=== PATIENT | female | born 1980 | race Caucasian/White ===

== ENCOUNTER 2018-02-04 14:33 | Emergency (ER) | payer MEDICAID, SELFPAY ==
[2018-02-04 15:06] LABS: Pregnancy Test - Urine (BHCG) Negative (Negative); Specific Gravity 1.025 (1.002-1.036)
[2018-02-04 15:07] LABS: Pregu Control Background? CLEAR/WHITE (CLR/WHITE); Pregu Control Bar Appear? YES (CONTROL BAR)
[2018-02-04 15:10] LABS: Bilirubin Negative (Negative); Blood, Urine Negative (Negative); Clarity Clear (Clear); Glucose, Urine (Dipstick) Negative (Negative); Leukocyte Negative (Negative); Nitrite Negative (Negative); Protein, Urine (Dipstick) Negative (Neg-Trace); Specific Gravity, Urine 1.025 (1.005-1.030); Urobilinogen 0.2 mg/dL (0.2-1.0); pH, Urine 5.5 (5.0-9.0)
[2018-02-04 15:13] LABS: Amphetamine Detected (NotDetected); Barbiturates Screen Not Detected (NotDetected); Benzodiazepine Screen Not Detected (NotDetected); Cocaine Metabolite Screen Not Detected (NotDetected); Medtox Control Line Valid? VALID (VALID); Methadone Not Detected (NotDetected); Methamphetamine Detected (NotDetected); Opiate Screen Not Detected (NotDetected); Oxycodone Screen Not Detected (NotDetected); Phencyclidine (PCP) Not Detected (NotDetected); THC/Cannabinoid Screen Not Detected (NotDetected); Tricyclic Screen Not Detected (NotDetected)
[2018-02-04] MEDS ORDERED: Bacitracin Zinc 1 Packet ONE (15:28)
[2018-02-04 15:29] LABS: ALT (SGPT) 9 U/L (8-55); AST (SGOT) 15 U/L (5-34); Acetaminophen Less than 6.0 mcg/mL (10.0-30.0); Albumin 3.7 g/dL (3.5-5.0); Alcohol Less than 10 mg/dL (Less than 10); Alkaline Phosphatase 145 U/L (40-150); Anion Gap 11 mmol/L (10-20); BUN (Urea Nitrogen) 10 mg/dL (7.0-18.7); Bilirubin, Total 0.2 mg/dL (0.2-1.2); CK (CPK) 79 U/L (29-168); Calc. Creatinine Clearance 0 mL/min (70-130); Carbon Dioxide 25 mmol/L (22-29); Chloride 107 mmol/L (98-107); Estimated GFR-MDRD 86; Globulin 3.7 g/dL (2.4-3.5); Glucose 104 mg/dL (70-105); Potassium 4.6 mmol/L (3.5-5.1); Protein, Total 7.4 g/dL (6.0-8.3); Salicylate Less than 8.0 mg/dL (15.0-30.0); Sodium 138 mmol/L (136-145)
[2018-02-04 15:35] LABS: #Basophils 0.1 thou/uL (0.0-0.2); #Eosinphils 0.6 thou/uL (0.0-0.7); #Lymphocytes 1.6 thou/uL (1.20-3.40); #Monocytes 0.7 thou/uL (0.11-0.59); #Neutrophils 4.4 thou/uL (1.40-6.50); %Basophils 0.9 % (0.0-1.0); %Eosinophils 7.7 % (0.0-10.0); %Lymphocytes 21.7 % (21.0-51.0); %Monocytes 9.1 % (0.0-10.0); %Neutrophils 60.6 % (42.0-75.0); Hemoglobin 8.5 g/dL (12.0-16.0); Hypochromia SLIGHT = 6-15 cells (100X) (0-5/hpf); MDiff Complete? YES; Mean Corpuscular HGB CONC 29.3 g/dL (32.0-36.0); Mean Corpuscular Hemoglobin 19.8 pg (27.0-31.0); Mean Corpuscular Volume 67.7 fL (78.0-98.0); Mean Platelet Volume 6.5 fL (7.4-10.4); Microcytosis SLIGHT = 6-15 cells (100X) (0-5/hpf); Platelet Count 456 thou/uL (130-400); Polychromasia SLIGHT = 2-3 cells (100X) (0-2/hpf); RBC Distribution Width 15.7 % (11.5-14.5); Red Blood Cell (RBC) Count 4.31 mill/uL (4.20-5.40); White Blood Cell (WBC) Count 7.2 thou/uL (4.8-10.8)
== END 2018-02-04 16:02 | disposition left against medical advice (07) ==
LOC: MADERS 14:33
DX: F32.9 Major depressive disorder, single episode, unspecified (principal); D50.9 Iron deficiency anemia, unspecified; F15.10 Other stimulant abuse, uncomplicated; F90.9 Attention-deficit hyperactivity disorder, unspecified type
CPT/HCPCS: 80053; 80306; 80307; 81003; 81025; 82550; 84443; 85025; 99284

== ENCOUNTER 2019-08-18 12:27 | Emergency (ER) | payer SELFPAY | END 2019-08-18 13:36 | disposition home or self-care (01) | LOC: MADERS 12:27 | DX: S30.0XXA Contusion of lower back and pelvis, initial encounter (principal); F31.9 Bipolar disorder, unspecified; F90.9 Attention-deficit hyperactivity disorder, unspecified type; W18.30XA Fall on same level, unspecified, initial encounter | CPT/HCPCS: 99283 ==

== ENCOUNTER 2021-05-18 21:27 | Emergency (ER) | payer SELFPAY | END 2021-05-18 21:37 | disposition left against medical advice (07) | LOC: MADERS 21:27 | DX: Z53.21 Procedure and treatment not carried out due to patient leaving prior to being seen by health care provider (principal) ==

== ENCOUNTER 2021-05-25 22:48 | Emergency (ER) | payer SELFPAY ==
[2021-05-25] MEDS ORDERED: Ketorolac Tromethamine 30 MG/ML VIAL ONE (23:12)
== END 2021-05-25 23:30 | disposition home or self-care (01) ==
LOC: MADERS 22:48
DX: S20.212A Contusion of left front wall of thorax, initial encounter (principal); W07.XXXA Fall from chair, initial encounter
CPT/HCPCS: 71046; 96372; J1885

== ENCOUNTER 2021-05-27 08:14 | Emergency (ER) | payer OTHER, SELFPAY | END 2021-05-27 08:55 | disposition home or self-care (01) | LOC: MADERS 08:14 | DX: S20.212A Contusion of left front wall of thorax, initial encounter (principal); W01.10XA Fall on same level from slipping, tripping and stumbling with subsequent striking against unspecified object, initial encounter ==

== ENCOUNTER 2021-10-22 18:06 | Emergency (ER) | payer SELFPAY ==
[2021-10-22 18:33] LABS: Bilirubin Negative (Negative); Blood, Urine Large (Negative); Glucose, Urine (Dipstick) Negative (Negative); Ketone, Urine Negative (Negative); Leukocyte Negative (Negative); Nitrite Negative (Negative); Protein, Urine (Dipstick) 100 mg/dL (Neg-Trace); Urobilinogen 0.2 mg/dL (Less than 2)
[2021-10-22 18:35] LABS: Clarity Hazy (Clear); Pregnancy Test - Urine (BHCG) Negative (Negative); Pregu Control Background? CLEAR/WHITE (CLR/WHITE); Pregu Control Bar Appear? YES (CONTROL BAR)
[2021-10-22 18:54] LABS: Bacteria/HPF 1+ HPF (None Seen); RBC/HPF Greater than 50 HPF (0-3); WBC/HPF 0-3 HPF (0-3)
[2021-10-22 18:55] LABS: Amphetamine Detected (NotDetected); Barbiturates Screen Not Detected (NotDetected); Benzodiazepine Screen Not Detected (NotDetected); Cocaine Metabolite Screen Not Detected (NotDetected); Medtox Control Line Valid? VALID (VALID); Methadone Not Detected (NotDetected); Methamphetamine Detected (NotDetected); Opiate Screen Not Detected (NotDetected); Oxycodone Screen Not Detected (NotDetected); Phencyclidine (PCP) Not Detected (NotDetected); THC/Cannabinoid Screen Not Detected (NotDetected); Tricyclic Screen Not Detected (NotDetected)
[2021-10-22 19:07] LABS: #Basophils 0.1 thou/uL (0.0-0.2); #Eosinphils 0.1 thou/uL (0.0-0.7); #Lymphocytes 1.4 thou/uL (1.20-3.40); #Monocytes 0.7 thou/uL (0.11-0.59); %Basophils 1.4 % (0.0-1.0); %Eosinophils 2.1 % (0.0-10.0); %Monocytes 13.2 % (0.0-10.0); %Neutrophils 56.3 % (42.0-75.0); Anisocytosis SLIGHT = 6-15 cells (100X) (0-5/hpf); Hemoglobin 9.6 g/dL (12.0-16.0); Hypochromia MODERATE=16-30 cells (100X) (0-5/hpf); MDiff Complete? YES; Mean Corpuscular Volume 73.4 fL (78.0-98.0); Mean Platelet Volume 11.1 fL (7.4-10.4); Microcytosis SLIGHT = 6-15 cells (100X) (0-5/hpf); Platelet Count 266 thou/uL (130-400); Platelet Morphology Comment Appears Adequate; RBC Distribution Width 16.1 % (11.5-14.5); Red Blood Cell (RBC) Count 4.38 mill/uL (4.20-5.40); White Blood Cell (WBC) Count 5.3 thou/uL (4.8-10.8)
[2021-10-22 19:08] LABS: ALT (SGPT) 22 U/L (8-55); AST (SGOT) 25 U/L (5-34); Acetaminophen Less than 10.0 mcg/mL (10.0-30.0); Albumin 3.9 g/dL (3.5-5.0); Alcohol Less than 10 mg/dL (Less than 10); Alkaline Phosphatase 67 U/L (40-110); Anion Gap 15 mmol/L (10-20); BUN (Urea Nitrogen) 11 mg/dL (7.0-18.7); Bilirubin, Total 0.4 mg/dL (0.2-1.2); Calc. Creatinine Clearance 0 mL/min (70-130); Calcium 8.6 mg/dL (7.8-10.44); Carbon Dioxide 22 mmol/L (22-29); Chloride 109 mmol/L (98-107); Globulin 3.3 g/dL (2.4-3.5); Glucose 104 mg/dL (70-105); Potassium 3.1 mmol/L (3.5-5.1); Protein, Total 7.2 g/dL (6.0-8.3); Salicylate Less than 8.0 mg/dL (15.0-30.0); Sodium 143 mmol/L (136-145)
[2021-10-23 00:54] LABS: SARS-CoV-2 NAA Rapid Test Not Detected (NotDetected)
== END 2021-10-23 02:07 ==
LOC: MADERS 18:06
DX: F31.9 Bipolar disorder, unspecified (principal); F20.9 Schizophrenia, unspecified; Z20.822 Contact with and (suspected) exposure to COVID-19; F90.9 Attention-deficit hyperactivity disorder, unspecified type
CPT/HCPCS: 36415; 80053; 80306; 80307; 81003; 81015; 81025; 84443; 85025; 93005; U0002

== ENCOUNTER 2022-09-21 18:18 | Emergency (ER) | payer MEDICAID, SELFPAY ==
[2022-09-21 18:58] LABS: Bilirubin Small (Negative); Blood, Urine Moderate (Negative); Glucose, Urine (Dipstick) Negative (Negative); Ketone, Urine Negative (Negative); Leukocyte Trace (Negative); Nitrite Negative (Negative); Protein, Urine (Dipstick) 30 mg/dL (Neg-Trace); Urobilinogen 0.2 mg/dL (Less than 2); pH, Urine 5.5 (5.0-9.0)
[2022-09-21 19:06] LABS: Clarity Hazy (Clear)
[2022-09-21 19:07] LABS: Specific Gravity, Urine 1.032 (1.002-1.036)
[2022-09-21 19:11] LABS: Bacteria/HPF 3+ HPF (None Seen); CAUTI Indications for Culture Urological Procedure
[2022-09-21 19:12] LABS: Pregnancy Test - Urine (BHCG) Negative (Negative); Pregu Control Background? CLEAR/WHITE (CLR/WHITE); Pregu Control Bar Appear? YES (CONTROL BAR); Specific Gravity 1.032 (1.002-1.036)
[2022-09-21 19:13] LABS: Urine Culture Reflex Yes Yes
== END 2022-09-21 19:17 | disposition home or self-care (01) ==
LOC: MADERS 18:18
DX: N92.1 Excessive and frequent menstruation with irregular cycle (principal); N93.9 Abnormal uterine and vaginal bleeding, unspecified
CPT/HCPCS: 81001; 81025; 87086; 99284

== ENCOUNTER 2024-03-21 13:26 | Emergency (ER) | payer SELFPAY ==
[2024-03-21] MEDS ORDERED: levETIRAcetam 500 MG TAB ONE (14:13)
== END 2024-03-21 14:20 | disposition home or self-care (01) ==
LOC: MADERS 13:26
DX: G40.909 Epilepsy, unspecified, not intractable, without status epilepticus (principal)
CPT/HCPCS: 99283

== ENCOUNTER 2024-04-05 07:18 | Emergency (ER) | payer SELFPAY | END 2024-04-05 07:34 | disposition home or self-care (01) | LOC: MADERS 07:18 | DX: B00.1 Herpesviral vesicular dermatitis (principal) | CPT/HCPCS: 99283 ==

== ENCOUNTER 2024-05-19 09:59 | Emergency (ER) | payer SELFPAY | END 2024-05-19 10:59 | disposition left against medical advice (07) | LOC: MADERS 09:59 | DX: Z53.21 Procedure and treatment not carried out due to patient leaving prior to being seen by health care provider (principal) ==

== ENCOUNTER 2024-05-21 19:32 | Emergency (ER) | payer SELFPAY ==
[2024-05-21] MEDS ORDERED: Acetaminophen 500 MG TAB ONE (20:22)
[2024-05-21] MEDS ORDERED: Ibuprofen 600 MG TAB ONE (20:22)
== END 2024-05-21 21:27 | disposition home or self-care (01) ==
LOC: MADERS 19:32
DX: M25.532 Pain in left wrist (principal); F17.290 Nicotine dependence, other tobacco product, uncomplicated
CPT/HCPCS: 99283